=== PATIENT | female | born 1955 | race Caucasian/White ===

== ENCOUNTER 2017-09-08 15:25 | Emergency (ER) | payer MEDICARE ==
--- NOTE | 2017-09-08 16:48 | CT ---
CT OF THE PELVIS WITHOUT CONTRAST 09/08/[address] of the pelvis was performed for evaluation of right hip pain and history of injury. Axial s lices were acquired, then coronal and sagittal reconstructions were done. No fracture was seen. All bones appeared intact. There were no bony destructive lesions. The articula r surfaces of the hip joints are smooth bilaterally. The right hip showed no specific abnormality to explain pain. There is some mild central canal stenosis at L4-L5 due to a combination of diffuse disc bulge and fac et and ligamentous hypertrophy. A mild concentrically bulging disc at L5-S1 is noted also. Regarding the soft tissues of the pelvis, no pelvic masses, inflammatory changes or free fluid was se en. The appendix appears normal. the urinary bladder is distended. IMPRESSION: 1. No acute bony findings. 2. Mild spinal stenosis at L4-L5 and mildly bulging disc at L5-S1. POS: HOME
== END 2017-09-08 16:45 | disposition home or self-care (01) ==
LOC: BURERS 15:25
DX: M54.5 Low back pain (principal); I10 Essential (primary) hypertension; F17.210 Nicotine dependence, cigarettes, uncomplicated
CPT/HCPCS: 72192